=== PATIENT | female | born 1990 ===

== ENCOUNTER 2016-11-27 16:19 | Emergency (ER) | payer SELFPAY ==
[2016-11-27 17:14] VITALS: BMI 31.4
--- NOTE | 2016-11-27 18:34 | US ---
PROCEDURE: HISTORY: loss of vaginal fluid COMPARISON: TECHNIQUE: FINDINGS: Single live intrauterine fetus. Amniotic fluid index of 13.6 centimeters. Biophysical profile of 8 out of 8. anatomic survey and biometric measurements not performed. IMPRESSION: As above
== END 2016-11-27 20:10 | disposition home or self-care (01) ==
LOC: H.EROB2 16:19
DX: O47.03 False labor before 37 completed weeks of gestation, third trimester (principal); Z3A.35 35 weeks gestation of pregnancy

== ENCOUNTER 2016-12-26 23:19 | Emergency (ER) | payer SELFPAY ==
--- NOTE | 2016-12-26 23:37 | OBHP ---
Datetime: 11/27/2016 17:21 IP Adm Impression: , intrauterine ; No Active Labor IP Admit Plan: Observation/Evaluation Admit Comment, IP Provider: 26 YO F @ 35.5 weeks was sent to the [facility] from the [facility] clinic, afte r presentng with LOF for the past one week. In the clinic she was found to be nitrizine positive and have ferning. - Patient denies any gush of fluid, she descrbes increase in discharge that has been happening con tinuously for the past week. She has irregular ctx - Denies any VB or pain currently. POBHx: RH negative, had Rho kannan on 10/26 after havng vaginal bleedng PMH: none PSH:Gallbladder removal: 3 years ago, Appendectomy: 12 years ago Allergies: None Med: PNV F/H: none 26 YO F @ 35.5 weeks is here for r/o PROM - Contnuous montoring - BPP w/ CHARISSA Ashley Llamas PGY-1 OBH ADDENDUM: PT seen _ exmined by me. Agree with assessment and plan above. d/c pt home f/u within 1wk. Pelvic Type - PN: Adequate Extremities - PN: Normal Lungs - PN: Normal Heart - PN: Normal General - PN: Normal FHR - Baseline A Provider: 145 Comments, ACOG Physical Exam: SSE: no fluid in vault; yellowish mucus per os; scant blood on ectocer vix, most likely 2ndary to speculum; no fluid per cervical os with coughing BPP 8/8; CHARISSA 13.6 Pool Provider: Negative EGA AdmitDate IP: 35.5 Vital Signs Provider: Reviewed; Within Normal Limits IP Chief Complaint: Suspected ruptured membranes NICHD Variability Prov Fetus A: Moderate 6-25bpm NICHD Accel Fetus A IP Provider: 15X15 NICHD Decel Fetus A IP Provider: None Dilatation, Provider: 0 Effacement, Provider: 0 Genitourinary Exam: Normal
[2016-12-26 23:48] VITALS: BMI 30.9
== END 2016-12-27 00:20 | disposition home or self-care (01) ==
LOC: H.EROB2 23:19
DX: O47.1 False labor at or after 37 completed weeks of gestation (principal); Z3A.40 40 weeks gestation of pregnancy; O48.0 Post-term pregnancy

== ENCOUNTER 2016-12-29 18:50 | Inpatient (IN) | payer SELFPAY ==
--- NOTE | 2016-12-29 19:09 | OBHP ---
Datetime: 12/27/2016 00:19 IP Adm Impression: Term, intrauterine ; No Active Labor IP Admit Plan: Discharge home Admit Comment, IP Provider: 26 y/o @ 40.0 weeks presents complaining of CTX. Reports she has be en having ctx since Sunday but pain and frequency has increased the past two days. 01/22 pain and ctx occur Q 3-4 minutes as per pt. Reports minor vaginal spotting as well but denies LOF. Reports good FM . Denies inciting event/sexual activity. No other symptoms. Denies headaches, changes in vision, epig astric pain, CP/SOB, N/V/D/C, urinary symptoms. PMD: Dr. Elizabeth Bullock/[facility] : up to date and complaint. Uneventful course thus far. chart reviewed POBhx: first PMHx: none Meds: PNVs daily PSurgHx: cholecystecomy 2011, appendectomy 2000 ALL: NKDA Social: denies ETOH, tobacco, drug abuse A/P: 26 y/o @ 40.0 weeks IUP complaining of CTX. -FHR reviewed, CTX q 6-8 mins, reactive NST -exam , membranes intact -pt has follow up appt at clinic on 12/[address] Bullock -discharge home -labor precautions -pt seen and case discussed with Dr. Nilson Alvarez MD PGY1 @12:27am OB Hospitalist on-call With PGY1, I saw this patient. Agree with note. MAHNDO Pelvic Type - PN: Adequate Extremities - PN: Normal Abdomen - PN: Normal Back - PN: Normal Breast - PN: Not Done Lungs - PN: Normal Heart - PN: Normal Thyroid - PN: Normal Neurologic - PN: Normal HEENT - PN: Normal General - PN: Normal Presentation-Admit: Vertex FHR - Baseline A Provider: 139 Membranes, Provider: Intact Contraction Comments Provider: q 6-8 minutes IP Hx Assessment: The History has been Reviewed and is Current EGA AdmitDate IP: 40.0 Vital Signs Provider: Reviewed; Within Normal Limits IP Chief Complaint: Uterine contractions NICHD Variability Prov Fetus A: Moderate 6-25bpm NICHD Accel Fetus A IP Provider: 15X15 FHR Category Provider Fetus A: Category I NICHD Decel Fetus A IP Provider: None Dilatation, Provider: 1 Effacement, Provider: 25 Station, Provider: -3 Genitourinary Exam: Normal DTRs - PN: Normal
[2016-12-29 19:29] VITALS: BMI 30.3
[2016-12-29 20:50] LABS: BASO % 0.4 % (0.0-2.0); EOS # 0.1 K/uL (0.0-0.7); EOS % 0.7 % (0.0-4.0); HEMATOCRIT 37.1 % (34.0-47.0); LYMPH # 2.1 K/uL (1.0-4.3); LYMPH % 18.1 % (20.0-40.0); MEAN CELL VOLUME 93.1 fl (81.0-99.0); MEAN CORPUSCULAR HEMOGLOBIN 30.3 pg (27.0-31.0); MEAN CORPUSCULAR HGB CONC 32.6 g/dL (33.0-37.0); MEAN PLATELET VOLUME 9.3 fl (7.2-11.7); MONO # 0.9 K/uL (0.0-0.8); MONO % 7.8 % (0.0-10.0); NEUT # 8.6 K/uL (1.8-7.0); NRBC % 0.1 % (0.0-0.0); RED CELL DISTRIBUTION WIDTH 13.5 % (11.5-14.5); WHITE BLOOD COUNT 11.8 K/uL (4.8-10.8)
[2016-12-29 21:18] VITALS: BP 101/51; PULSE 79; RESP 18; TEMP 98.1; O2SAT 100
[2016-12-29] MEDS ORDERED: Nalbuphine 20 mg/ml Inj (1 ml) IVP PRN (22:52)
[2016-12-30] MEDS: Lactated Ringer's 1,000 ML IV SCH ×4 (02:00→09:20)
[2016-12-30] MEDS ORDERED: Fentanyl/Bupivacaine HCl 250 ML EPI ONE (02:34)
--- NOTE | 2016-12-30 06:23 | OBADHP ---
Datetime: 12/29/2016 20:06 Admit Comment, IP Provider: 26 y/o @ 40.2 weeks presents complaining of CTX and here for IOL. R eports she has been having ctx all day. 04/24 pain and ctx occur Q 3-4 minutes as per pt. Reports min or vaginal spotting as well but denies LOF. Reports good FM. Denies sexual activity. No other symptom s. Denies headaches, changes in vision, epigastric pain, CP/SOB, N/V/D/C, urinary symptoms. PMD: Dr. Elizabeth Bullock/[facility] : A-, Ab+, GBS neg, HBsAg neg, HIV/RPR neg, Rubella Immune, Rho kannan given 05/28/2016 POBhx: first PMHx: none Meds: PNVs daily PSurgHx: cholecystecomy 2011, appendectomy 2000 ALL: NKDA Social: denies ETOH, tobacco, drug abuse A/P: 26 y/o @ 40.2 weeks IUP for Induction of labor -admit for IOL -CBC, type and screen -cytotec 50mcg Q4H -enema -iv heplock -anesthiology consult PRN for epidural -case discussed and pt seen with Dr. Nilson Alvarez PGY1 @ 20:15 OB Hospitalist note. I saw and examined this pt. Agree with PGY1 note MAHNDO...discussion with pt abotu IOL, pain management, meds, labor, delivery and ...she states that she understood Pelvic Type - PN: Adequate Extremities - PN: Normal Abdomen - PN: Normal Back - PN: Normal Breast - PN: Not Done Lungs - PN: Normal Heart - PN: Normal Thyroid - PN: Normal Neurologic - PN: Normal HEENT - PN: Normal General - PN: Normal Presentation-Admit: Vertex FHR - Baseline A Provider: 139 Membranes, Provider: Intact Contraction Comments Provider: q 3-4min Comments, ACOG Physical Exam: ROS: 12 points reviewed, found to be negative IP Hx Assessment: The History has been Reviewed and is Current Vital Signs Provider: Reviewed; Within Normal Limits IP Chief Complaint: Uterine contractions; Scheduled induction of labor NICHD Variability Prov Fetus A: Moderate 6-25bpm NICHD Accel Fetus A IP Provider: 15X15 FHR Category Provider Fetus A: Category I NICHD Decel Fetus A IP Provider: None Dilatation, Provider: 2 Effacement, Provider: long Station, Provider: high Genitourinary Exam: Normal DTRs - PN: Normal EGA AdmitDate IP: 40.2 IP Adm Impression: Term, intrauterine ; Intact Membranes IP Admit Plan: Admit to unit; Initiate labor induction protocol Datetime: 11/27/2016 17:21 Pool Provider: Negative
--- NOTE | 2016-12-30 07:51 | OBPN ---
Datetime: 12/30/2016 07:40 IP Progress Impression: Reassuring heart rate IP Informed Consent Obtain: Vaginal Delivery; Risks, Benefits and Alternatives Discussed IP Progress Plan: Continue present management; Augmentation Pool Provider: Positive Membranes, Provider: Ruptured Amniotic Fluid Color, Provider: Clear Contraction Comments Provider: 4-10m FHR - Baseline A Provider: 130 Presentation-Admit: Vertex IP Progress Note Comment: Notiifed of progress...last night she rec'd epidural. She was 6cm at 2am. ..then 8cm at 6am. She felt pressure and checked at 7:30am bny nurse and found to be 9cm?...re-check ed by me 8-9cm/bulging membranes. Discusion with pt...AROM / clear fluid augmenetion / doing well with epidural / doing nipple stim A: active phase of labor PLAN: monitor progress/AROM augmentation NICHD Accel Fetus A IP Provider: 15X15 FHR Category Provider Fetus A: Category I NICHD Variability Prov Fetus A: Moderate 6-25bpm Dilatation, Provider: 8-9 Effacement, Provider: 100 Station, Provider: 0 NICHD Decel Fetus A IP Provider: None Datetime: 12/29/2016 20:06 Vital Signs Provider: Reviewed; Within Normal Limits
[2016-12-30] MEDS ORDERED: Lidocaine 2% Inj (20ml) ONE (07:58)
[2016-12-30] MEDS ORDERED: Oxytocin 30 units/LR 500ML 30 U/500 ML BAG IV ONE (08:59)
[2016-12-30] MEDS ORDERED: Oxytocin 30 units/LR 500ML 30 U/500 ML BAG IV SCH (09:00)
--- NOTE | 2016-12-30 09:10 | OBPN ---
Datetime: 12/30/2016 09:00 IP Progress Impression: Reassuring heart rate IP Informed Consent Obtain: Vaginal Delivery; Risks, Benefits and Alternatives Discussed IP Progress Plan: Continue present management; Augmentation Pool Provider: Positive Membranes, Provider: Ruptured Contraction Comments Provider: 5-7m FHR - Baseline A Provider: 135 Presentation-Admit: Vertex IP Progress Note Comment: She feels fine No pain A; active phase of labor/slow progress secondary to irregular CTX PLAN: will start Pitocin augmentation NICHD Accel Fetus A IP Provider: 15X15 FHR Category Provider Fetus A: Category I NICHD Variability Prov Fetus A: Moderate 6-25bpm Dilatation, Provider: 9 Effacement, Provider: 100 Station, Provider: 0 NICHD Decel Fetus A IP Provider: None
--- NOTE | 2016-12-30 12:55 | OBPN ---
Datetime: 12/30/2016 12:45 IP Progress Impression: Reassuring heart rate IP Informed Consent Obtain: Risks, Benefits and Alternatives Discussed IP Procedures: Intrauterine Pressure Catheter IP Progress Plan: Continue present management; Augmentation Contraction Comments Provider: Unabel to monitor intensity/freq adequately FHR - Baseline A Provider: 135 Presentation-Admit: Vertex IP Progress Note Comment: She feels back pain. But she is comfortable SVE RIM - 9cm/ 100% A; Active phase of labor PLAN: IUPC placed to better monitor freq/intensity Piotcin at 10miu/h condition discussed with pt. she understood. NICHD Accel Fetus A IP Provider: 15X15 FHR Category Provider Fetus A: Category I NICHD Variability Prov Fetus A: Moderate 6-25bpm Dilatation, Provider: 9 Effacement, Provider: 100 Station, Provider: 0 NICHD Decel Fetus A IP Provider: None
--- NOTE | 2016-12-30 13:15 | OBPN ---
Datetime: 12/30/2016 13:13 Contraction Comments Provider: q2min Presentation-Admit: Vertex IP Progress Note Comment: Notified after Pitocin increased to 12miu/h decels noted x 2 episoides. O2 given and left lateral...pitocin off FH reassuring Fully dillated/will start pushing Dilatation, Provider: 10 Effacement, Provider: 100 Station, Provider: 1
[2016-12-30] MEDS ORDERED: Oxycodone/Acetaminophen 5/325 mg Tab PO PRN ×4 (15:00→18:30)
[2016-12-30] MEDS ORDERED: Benzocaine/Menthol SPRAY TOP PRN ×2 (15:00→18:30)
--- NOTE | 2016-12-30 15:11 | CP.PCM.PCO ---
Summary - Summary of Event Summary of Event: S: admitted for IOL for oligo O: in active labor A/P: s/p at EGA 40.3wk no complications -routine care -encourage
[2016-12-31 06:11] LABS: MEAN CELL VOLUME 93.4 fl (81.0-99.0); MEAN CORPUSCULAR HEMOGLOBIN 30.7 pg (27.0-31.0); MEAN CORPUSCULAR HGB CONC 32.8 g/dL (33.0-37.0); RED CELL DISTRIBUTION WIDTH 13.5 % (11.5-14.5); WHITE BLOOD COUNT 18.2 K/uL (4.8-10.8)
[2016-12-31] MEDS: Prenatal Multivit/Folic Acid/Iron Tab PO SCH (08:31)
[2016-12-31] MEDS ORDERED: Prenatal Multivit/Folic Acid/Iron Tab PO SCH (09:00)
--- NOTE | 2016-12-31 18:59 | OBPPN ---
Datetime: 12/31/2016 11:54 PP Pain Prov: Within normal limits PP Nausea Prov: Denies PP Flatus Prov: Yes PP BM Prov: No PP Heart Prov: Normal PP Lungs Prov: Normal PP Abdomen/Uterus Prov: Normal PP Lochia Prov: Normal PP CVA Tenderness Prov: Normal PP Extremities Prov: Normal PP C/S Incision Prov: Not Applicable PP Progress Prov: Normal PP Comments Phys Exam Prov: Fundus: Firm and below umbilicus PP Impression Prov: Normal progression PP Plan Prov: Continue present management PP Progress Note Prov: 26 YO seen and examined at bedside. Patient had uneventful overnight an d has been feeling well during the day. Patient reports mild pelvic pain controlled w/ pain meds. O OB/Ambulating w/o dizziness. Breast/bottle feeding w/o difficulty. Patient has been tolerating PO i ntake. Patient denies any nausea or vomiting. Patient passed gas but has not yet had a bowl movment. Pain controlled with medication. Denies fevers, chills, n/v/d, CP/SOB, lightheadedness and calf zuleyka n. Assessment:26 YO s/p on 12/30/16 @ 14:58 tolerating pain w/ medication, tolerating oral intake, adequate urine output, doing well on PPD#1 Plan: - Mild pain (1-3) PRN: Ibuprofen 600 mg 1 tab Q6h PO - Mod pain (4-7) PRN: Percocet 5/325 mg 1 tab Q6 PO - Encourage breast feeding and ambulation - Rhogam ordered since mother is A- and Baby is O+ Ashley Llamas PGY-1 IP PP Procedures: None Vital Signs Provider PP: Reviewed; Within Normal Limits
--- NOTE | 2016-12-31 20:51 | CP.PCM.PCO ---
Summary - Summary of Event Summary of Event: S: eating, drinking, no lochia, pain well controlled, making urine, no BM O: VSS General:NAD CVS: RRR Lung: CTAB Abd: uterus firm Ext: neg Carey's A/P: 26yo F s/p PPD#1 -routine care -BF and formula -pain control -6 week visit 02/09/17 @ 1:[address] Bullock in clinic
--- NOTE | 2017-01-01 06:04 | CP.PCM.PCO ---
Summary - Summary of Event Summary of Event: S: eating, drinking, no lochia, pain well controlled, making urine, O: VSS General:NAD CVS: RRR Lung: CTAB Abd: uterus firm Ext: neg Carey's A/P: 26yo F s/p PPD#2 -received Rhogam -routine care -BF and formula -pain control -6 week visit 02/09/17 @ 1:[address] Bullock in clinic
[2017-01-01] MEDS: Prenatal Multivit/Folic Acid/Iron Tab PO SCH (09:36)
--- NOTE | 2017-01-01 10:39 | OBPPN ---
Datetime: 01/01/2017 07:05 PP Pain Prov: Within normal limits PP Nausea Prov: Denies PP Flatus Prov: Yes PP BM Prov: Yes PP Breasts Prov: Normal PP Heart Prov: Normal PP Lungs Prov: Normal PP Abdomen/Uterus Prov: Normal PP Lochia Prov: Normal PP Vulva/Perineum Prov: Normal PP CVA Tenderness Prov: Normal PP Extremities Prov: Normal PP C/S Incision Prov: Not Applicable PP Progress Prov: Normal PP Comments Phys Exam Prov: abd: +BS, soft, NT/ND, no guarding/rigidity. Fundus firm below level of umbilicus PP Impression Prov: Normal progression PP Plan Prov: Discharge PP Progress Note Prov: pt seen and examined at bedside. No acute events overnight. Patient reports m ild pelvic pain controlled w/ pain meds. OOB/Ambulating w/o dizziness. Bottle feeding as she is havi ng some difficult. Denies fevers, chills, n/v/d, CP/SOB, lightheadedness and calf pain. A/P: 26 y/o s/p on 12/30/16 @ 14:58 tolerating pain w/ medication, afebrile, doing well o n PPD#2. -discharge home today -Ibuprofen 600 mg 1 tab Q6h PO -counceled on and importance of persistence for stimulation -Rhogam given -Nothing per vagina, no sexual activity, resume daily activities -f/u with Dr. Bullock for post visit on 02/09 -baby f/u on 01/[address] Kobe Alvarez MD PGY1 @ 7:10am OBH ADDENDUM: pt seen _ examined by me. agree with above assessmetn and pln. s: no c/o p: reinforced perineum care- sitz bath, peribottle dw pt continue pnv Vital Signs Provider PP: Reviewed; Within Normal Limits
--- NOTE | 2017-01-01 10:41 | OBDCSUM ---
Datetime: 01/01/2017 07:11 Discharged to, Provider: Home Follow up at, Provider: Elizabeth Rodriguez Instr Activity: Normal activity Disch Instr Diet: Regular Discharge Instructions, Provider: Routine instructions given Discharge Diagnosis, Provider: Term Delivered Discharge Time: 01/01/2017 07:00 Follow up in weeks, Provider: 01/03 @ [facility] Disch Referrals: None Contraception discussed, Prov: Yes Disch Activity Restrictions: No sexual activity; Nothing in vagina - Garten, tampons, douche Contraception after Delivery: IUD; Foam/Condoms Datetime: 12/27/2016 00:19 Discharge Instructions, Provider: Routine instructions given Contraception discussed, Prov: Yes
== END 2017-01-01 12:30 | disposition home or self-care (01) | DRG 775 ==
LOC: H.EROB2 18:50 → H.L&D 19:58 → H.OB/GYN 12-30 19:34
PROVIDERS: ADMIT Obstetrics & Gynecology; ATTEND Obstetrics & Gynecology
PROC: 0KQM0ZZ Repair Perineum Muscle, Open Approach (ICD-10-PCS; principal; 2016-12-29)
PROC: 10E0XZZ Delivery of Products of Conception, External Approach (ICD-10-PCS; 2016-12-29)
PROC: 4A1HXCZ Monitoring of Products of Conception, Cardiac Rate, External Approach (ICD-10-PCS; 2016-12-29)
DX: O48.0 Post-term pregnancy (principal); O71.89 Other specified obstetric trauma; Z37.0 Single live birth; Z3A.40 40 weeks gestation of pregnancy

== ENCOUNTER 2017-08-18 11:18 | Emergency (ER) | payer MEDICAID, OTHER ==
[2017-08-18 11:26] VITALS: BMI 26.5
[2017-08-18 11:27] VITALS: PULSE 100; O2SAT 100
--- NOTE | 2017-08-18 11:43 | ED PDOC ---
HPI: Skin/Bite Injury Time Seen by Provider: 08/18/17 11:24 Chief Complaint (Nursing): Abnormal Skin Integrity Chief Complaint (Provider): Rash History Per: Patient Additional Complaint(s): 27 yo female, no PMH, presents to ED with itchy red rash that developed to upper and lower extremities, and back x 1 month now. No t responsive to Benadryl. symptoms worse at night. Past Medical History Vital Signs: Last Vital Signs Temp 97.0 F L 08/18/17 11:26 Pulse 100 H 08/18/17 11:26 Resp 16 08/18/17 11:26 BP 106/62 08/18/17 11:26 Pulse Ox 100 08/18/17 11:26 - Immunization History Hx Tetanus Toxoid Vaccination: No Hx Influenza Vaccination: No - Home Medications Home Medications: Ambulatory Orders Medication Instructions Recorded Vit Calc,Iron,Folic 1 tab PO DAILY 11/27/16 [ Vitamins] Ibuprofen [Motrin Tab] 600 mg PO Q6 PRN #30 tab 01/01/17 - Allergies Allergies/Adverse Reactions: Allergies Allergy/AdvReac Type Severity Reaction Status Date / Time No Known Allergies Allergy Verified 12/29/16 19:26 - ECG O2 Sat by Pulse Oximetry: 100 Disposition - Disposition
[2017-08-18 14:32] VITALS: BP 128/78; RESP 18; TEMP 97
== END 2017-08-18 14:32 | disposition home or self-care (01) ==
LOC: H.ER 11:18
DX: R21 Rash and other nonspecific skin eruption (principal)

== ENCOUNTER 2018-01-30 01:32 | Emergency (ER) | payer SELFPAY ==
[2018-01-30 01:33] VITALS: BMI 26.5
[2018-01-30 01:56] VITALS: PULSE 94; RESP 18; TEMP 98.2; O2SAT 100
[2018-01-30] MEDS ORDERED: PROPARACAINE/FLUORESCEIN SOD 100 DROP/5 ML BOTTLE OS STA (02:16)
[2018-01-30] MEDS ORDERED: PROPARACAINE/FLUORESCEIN SOD 100 DROP/5 ML BOTTLE ONE (02:17)
--- NOTE | 2018-01-30 02:18 | ED PDOC ---
HPI: Eye Injury/Pain Time Seen by Provider: 01/30/18 02:00 Chief Complaint (Nursing): Eye Problem Chief Complaint (Provider): left eye irritation History Per: Patient, Adult Basic Education Teacher History/Exam Limitations: no limitations Onset/Duration Of Symptoms: Hrs Current Symptoms Are (Timing): Still Present Associated Symptoms: Pain, FB Sensation, Itching, Discharge From Eye Additional Complaint(s): 27 y/o female presents for evaluation of left eye irritation x 9 hours. Patient states she was outside and felt some irritation to eye around 17:00; states she began rubbing the eye and then 2 hours later noted redness, pain, and yellow drainage from eye. Denies fever, headache, vision changes. Past Medical History Reviewed: Historical Data, Nursing Documentation, Vital Signs Vital Signs: Last Vital Signs Temp 98.2 F 01/30/18 01:51 Pulse 94 H 01/30/18 01:51 Resp 18 01/30/18 01:51 BP Pulse Ox 100 01/30/18 01:51 - Medical History PMH: No Chronic Diseases - Surgical History Surgical History: No Surg Hx - Family History Family History: States: No Known Family Hx - Immunization History Hx Tetanus Toxoid Vaccination: No Hx Influenza Vaccination: No - Home Medications Home Medications: Ambulatory Orders Medication Instructions Recorded Vit Calc,Iron,Folic 1 tab PO DAILY 11/27/16 [ Vitamins] Ibuprofen [Motrin Tab] 600 mg PO Q6 PRN #30 tab 01/01/17 Hydrocortisone 1% Cream [Cortizone 1 dap TOP BID #1 tube 08/18/17 1% Cream] Polymyxin/Trimethoprim Sulfate 1 drop OS Q4 #1 bottle 01/30/18 [Polytrim Ophth Soln] - Allergies Allergies/Adverse Reactions: Allergies Allergy/AdvReac Type Severity Reaction Status Date / Time No Known Allergies Allergy Verified 01/30/18 01:50 Review of Systems ROS Statement: Except As Marked, All Systems Reviewed And Found Negative Eyes: Positive for: Pain (left), Redness (left) Physical Exam - Reviewed Nursing Documentation Reviewed: Yes Vital Signs Reviewed: Yes - Physical Exam Appears: Positive for: Well, Non-toxic, No Acute Distress Head Exam: Positive for: ATRAUMATIC, NORMAL INSPECTION, NORMOCEPHALIC Skin: Positive for: Normal Color Eye Exam: Positive for: EOMI, PERRL, Conjunctival injection (left with + clear drainage) ENT: Positive for: Normal ENT Inspection - ECG O2 Sat by Pulse Oximetry: 100 - Progress ED Course And Treament: 2 flucaine drops placed in left eye; fluro stain reveals no uptake Patient educated on findings, discharged with rx Polytrim Advised follow up ophthalmolgy Return precautions given Disposition - Clinical Impression Clinical Impression: Conjunctivitis - Patient ED Disposition Is Patient to be Admitted: No Counseled Patient/Family Regarding: Studies Performed, Diagnosis, Need For Followup, Rx Given - Disposition Referrals: Devon Contreras MD [Staff Provider] - Disposition: Routine/Home Disposition Time: 02:38 Condition: IMPROVED Prescriptions: Polymyxin/Trimethoprim Sulfate [Polytrim Ophth Soln] 1 drop OS Q4 #1 bottle Instructions: Conjunctivitis ([place]) Print Language: YAKUT
== END 2018-01-30 03:10 | disposition home or self-care (01) ==
LOC: H.ER 01:32
DX: H10.9 Unspecified conjunctivitis (principal)